=== PATIENT | female | born 1980 | race Caucasian/White ===

== ENCOUNTER 2021-02-04 11:12 | Day surgery (SDC) | payer OTHER ==
[~2021-02-04] VITALS: Ht 167.6 cm; Wt 121.3 kg
[~2021-02-04 11:12] MED LIST: DEXAMETHASONE SOD PHOS 4 MG/ML VIAL ONE; FERR325T14 PO; FERRIC SUBSULFATE 8 ML SOL.W.APPL TP ONE; HYDROmorphone 2 MG/ML VIAL IVP PRN; IV RINGERS,LACTATED 1000ML 1,000 ML IV SCH; LIDOCAINE 1%/EPI 1:100,000 20 ML VIAL. INJ ONE; LIDOCAINE 2% PF 5 ML VIAL. ONE; MIDAZOLAM HCL/PF 2 MG/2 ML VIAL. ONE; MULT-647 PO; ONDANSETRON PF 4 MG/2 ML VIAL. ONE; PROCHLORPERAZINE 10 MG/2 ML VIAL. IVP PRN; PROPOFOL 10 MG/ML (20ML) VIAL. IV ONE; ceFAZolin SODIUM 3 GM in IV DEXTROSE 5% 100ML 100 ML IV PRN; fentaNYL PF VIAL 100 MCG/2 ML VIAL IVP PRN; fentaNYL PF VIAL 100 MCG/2 ML VIAL ONE
[2021-02-04 11:32] VITALS: BP 123/75
[2021-02-04] MEDS ORDERED: [UNRECOGNIZED DRUG - CODE] PO (11:48)
[2021-02-04] MEDS ORDERED: HYDR100T24 PO (11:48)
[2021-02-04] MEDS ORDERED: DULO60CA6 PO (11:48)
[2021-02-04] MEDS ORDERED: KETOROLAC 30 MG/ML VIAL. ONE (12:31)
--- NOTE | 2021-02-04 12:46 | PDOC ---
BRIEF OPERATIVE NOTE Date: Feb 04, 2021 Pre-Op Diagnosis RENATO 1 Post-Op Diagnosis Same Procedure Performed Cervical Cone Biopsy Surgeon Dr. Mcnulty Anesthesia Type: General Blood Loss 5 ml Specimens Obtained cervical cone biopsy of anterior and posterior lip of cervix Findings cervical dysplasia Complications none Operative Note see dictation TAMMY MCNULTY Jr, MD Feb 04, 2021 12:46
--- NOTE | 2021-02-04 12:48 | DISCH ---
DISCHARGE INSTRUCTIONS Condition on Discharge Condition on Discharge: Stable Activity After Discharge Activity Instructions for Disc: Activity as tolerated Lifting Instructions after Dis: No heavy lifting Driving Instructions after Dis: Do not drive today Diet after Discharge Diet after Discharge: Regular Contacting the DRKimberly after DC Call your doctor for: Concerns you may have Follow-Up Follow up with: Dr. Mcnulty in 2 weeks. Rx Motrin 800 mg TID prn pain. TAMMY MCNULTY Jr, MD Feb 04, 2021 12:48
[2021-02-04] MEDS ORDERED: IBUP200T44 PO (13:05)
[2021-02-04] MEDS ORDERED: IBUPROFEN 400 MG TABLET. PO ONE (13:15)
[2021-02-04 13:25] VITALS: BP 145/80
--- NOTE | 2021-02-04 13:26 | OP ---
DATE OF SURGERY: 02/04/2021 PREOPERATIVE DIAGNOSIS: Cervical dysplasia. POSTOPERATIVE DIAGNOSIS: Cervical dysplasia. PROCEDURE: Cervical cone biopsy via Cold Knife Cone Biopsy SURGEON: Kahlil Mcnulty MD ANESTHESIA: GETA. ESTIMATED BLOOD LOSS: 5 mL. COMPLICATIONS: None. FINDINGS: Cervical dysplasia, RENATO 1. SUMMARY: A 41-year-old with RENATO 1 on colposcopic biopsy, requiring a cervical cone biopsy. She was counseled on the risks, benefits and expectations and voiced clear understanding to proceed. DESCRIPTION OF PROCEDURE: The patient was taken to the surgery suite and placed in the dorsal lithotomy position, was prepped with Betadine solution and draped in sterile fashion. After adequate anesthesia, weighted speculum and curved [place] placed vaginally. Anterior lip of the cervix grasped with a single tooth tenaculum. Cervix was injected with 1% lidocaine with epinephrine in a circumferential manner; 2-0 Vicryl suture was placed at 3 o'clock and 9 o'clock position to help stabilize the cervix. The cone biopsy was performed with the 45-degree angle scapula and removed from the anterior and posterior lip of the cervix. The remaining cervix was cauterized with Bovie cautery. Monsel solution was also applied for better hemostasis. Single tooth tenaculum, weighted speculum and curved Kitty were all removed. The patient tolerated the procedure well and was taken to recovery room in stable condition. Sponge and needle count correct x 3. HAWK/YENI DR: Leeroy TID: [id number] JOSHUA
--- NOTE | 2021-02-08 09:08 | PATHOLOGY ---
[facility] Accession Number: [id number] . 01 Material submitted: . cervix - CERVICAL CONE BIOPSY SUTURE AT 12:00 . 02 Diagnosis: Uterine cervix, cervical cone biopsy: - Mild dysplasia (RENATO-I), focal. - Endocervical, deep, and exocervical margins negative for RENATO-I. - Active chronic and chronic follicular cervicitis with focally atypical squamous metaplasia. - Nabothian cysts. - Endocervical gland tunnel clusters. (JPM:rasta; 02/05/2021) [facility] 02/08/2021 0814 Local . 02 Comment: There is no high-grade RENATO or evidence of malignancy. (JPM:rasta; 02/05/2021) . 02 Electronically signed: . Christian Carey MD, Pathologist NPI- [id number] . 01 Gross description: . The specimen is received in formalin, labeled "Cee Arredondo J and cervical cone biopsy suture at 12:00". It consists of a previously incised, oriented cervical cone measuring 3.0 x 2.0 x 1.5 cm. The specimen is oriented with a suture designating 12:00. A scant amount of ectocervical mucosa is identified which appears -white and focally hemorrhagic. The endocervical margin is inked blue and the remaining stroma is inked black. Sectioning reveals multiple smooth-walled, clear gelatinous fluid filled cysts. The specimen is entirely submitted as follows: A1: 12:00-3:00 A2-A3: 3:00-6:00 A4-A5: 6:00-9:00 A6-A7: 9:00-12:00 (MRF; 02/04/2021) MFE/MFE 02/04/2021 1910 Local . 02 Pathologist provided ICD-10: N87.0, N72, N88.8 . 02 CPT . 324311 Specimen Comment: A courtesy copy of this report has been sent to [phone] Specimen Comment: Report sent to Specimen Comment: A duplicate report has been generated due to demographic updates. Performed at: 01 [facility] [address], [place] [id number] MD Mauricio Rosario MD Phone: [phone] Performed at: 02 [facility] [address] [place], [place] [id number] MD Christian Carey MD Phone: [phone]
== END 2021-02-04 13:25 | disposition home or self-care (01) ==
LOC: SURG 11:12
PROVIDERS: ATTEND Obstetrics & Gynecology
DX: N87.9 Dysplasia of cervix uteri, unspecified (principal); N87.0 Mild cervical dysplasia; N72 Inflammatory disease of cervix uteri; Z98.51 Tubal ligation status; Z98.890 Other specified postprocedural states; Z79.899 Other long term (current) drug therapy; Z91.040 Latex allergy status; Z88.8 Allergy status to other drugs, medicaments and biological substances
CPT/HCPCS: 57520; 81025; 88307; A4344; A4930; J1100; J1885; J2405; J2704; J3010; J2250

== ENCOUNTER 2021-04-26 18:17 | Emergency (ER) | payer OTHER ==
[~2021-04-26] VITALS: Ht 167.6 cm; Wt 121.5 kg
[~2021-04-26 18:17] MED LIST changes: -DEXAMETHASONE SOD PHOS 4 MG/ML VIAL ONE; +DULO60CA7 PO; -FERRIC SUBSULFATE 8 ML SOL.W.APPL TP ONE; +HYDR100T24 PO; -HYDROmorphone 2 MG/ML VIAL IVP PRN; +IBUP200T44 PO; -IV RINGERS,LACTATED 1000ML 1,000 ML IV SCH; -LIDOCAINE 1%/EPI 1:100,000 20 ML VIAL. INJ ONE; -LIDOCAINE 2% PF 5 ML VIAL. ONE; -MIDAZOLAM HCL/PF 2 MG/2 ML VIAL. ONE; -ONDANSETRON PF 4 MG/2 ML VIAL. ONE; -PROCHLORPERAZINE 10 MG/2 ML VIAL. IVP PRN; -PROPOFOL 10 MG/ML (20ML) VIAL. IV ONE; +[UNRECOGNIZED DRUG - CODE] PO; -ceFAZolin SODIUM 3 GM in IV DEXTROSE 5% 100ML 100 ML IV PRN; -fentaNYL PF VIAL 100 MCG/2 ML VIAL IVP PRN; -fentaNYL PF VIAL 100 MCG/2 ML VIAL ONE
[2021-04-26] MEDS ORDERED: METOCLOPRAMIDE HCL 10 MG/2 ML VIAL. IVP ONE (19:00)
[2021-04-26] MEDS ORDERED: PHENAZOPYRIDINE 200 MG TABLET. PO ONE (19:00)
[2021-04-26] MEDS ORDERED: IV NORMAL SALINE 1000ML BAG 1,000 ML IV SCH (19:00)
--- NOTE | 2021-04-26 19:05 | PHYS DOC ---
Past Medical History Additional Past Medical Histor: Hep C, anemia, kidney stones, Uti. Past Surgical History: No Surgical History Smoking Status: Former Smoker Alcohol Use: None General Adult EDM: Chief Complaint: ABDOMINAL PAIN HPI: HPI: 41-year-old female past medical history significant for seizure disorder, right renal cyst, former IV drug use with cocaine, hepatitis C infection, iron deficiency anemia and anxiety, presents to the ED from [facility] (has been incarcerated for 2 years) with complaints of " really bad burning sensation under my skin," states she was diagnosed with nerve pain that goes from her right hip to her ribs and sometimes her buttock and right flank region. Patient states for the past week the symptoms have been worsening -more localized near her right flank with nausea and vomiting that started last night, "I haven''t been able to eat anything today." Patient states she was recently diagnosed with a urinary tract infection and just started Rocephin, Cipro and Bactrim today. Past surgical history of cholecystectomy, appendectomy, 3 C-sections and a cervical cone biopsy February 042020. Has received the moderna covid vaccine 08/2020. Review of Systems: Review of Systems: Constitutional: Denies fever or chills. [] Eyes: Denies change in visual acuity. [] HENT: Denies nasal congestion or sore throat. [] Respiratory: Denies cough or shortness of breath. [] Cardiovascular: Denies chest pain or edema. [] GI: Denies bloody stools or diarrhea. [] : Reports dysuria and hematuria, no vaginal bleeding or abnormal discharge Musculoskeletal: Denies midline back pain or joint pain. [] Integument: Denies rash or diaphoresis Neurologic: Denies headache, focal weakness or sensory changes. [] Endocrine: Denies polyuria or polydipsia. [] Lymphatic: Denies swollen glands. [] Psychiatric: Denies depression or anxiety. [] Heart Score: C/O Chest Pain: No Risk Factors: Risk Factors: DM, Current or recent (<one month) smoker, HTN, HLP, family history of CAD, obesity. Risk Scores: Score 0 - 3: 2.5% MACE over next 6 weeks - Discharge Home Score 4 - 6: 20.3% MACE over next 6 weeks - Admit for Clinical Observation Score 7 - 10: 72.7% MACE over next 6 weeks - Early Invasive Strategies Allergies: Allergies: Allergies Coded Allergies Type Severity Reaction Last Updated Verified latex Allergy Intermediate Unknown 04/26/21 Yes morphine Allergy Intermediate Unknown 04/26/21 Yes Physical Exam: PE: Constitutional: Well developed, well nourished, no acute distress, non-toxic appearance. HENT: Normocephalic, atraumatic, Eyes: EOMI, conjunctiva normal, no discharge. Neck: Normal range of motion, supple, Cardiovascular: S1/2 present, regular rhythm Lungs & Thorax: Speaking in full sentences, bilateral equal chest rise, no tachypnea or increased work of breathing Abdomen: soft, no tenderness, Skin: Warm, dry, no erythema, no rash. [] Back: No tenderness, right CVA tenderness. [] Extremities: No tenderness, no cyanosis, no lower extremity edema Neurologic: Alert and oriented X 3, normal motor function, normal sensory function, no focal deficits noted. [] Psychologic: Affect normal, judgement normal, mood normal. [] Current Patient Data: Vital Signs: Vital Signs Date Time Temp Pulse Resp B/P (MAP) Pulse Ox O2 Delivery O2 Flow Rate FiO2 04/26/21 18:25 97.8 69 20 115/76 (89) 97 Room Air 97.8 EKG: EKG: Sinus rhythm at 60 bpm, no axis deviation, normal intervals, T wave inversion V3, no ST ovation ST depression, no active chest pain or pressure Radiology/Procedures: Radiology/Procedures: []IMAGING REPORT Signed PATIENT: PADILLA LANGLEY ACCOUNT: [id number] : 1980 LOCATION: ER AGE: 41 SEX: F EXAM STATUS: REG ER ORD. PHYSICIAN: DAVID GARCIAS DO REASON: right rib and flank pain PROCEDURE: PORTABLE CHEST 1V XR CHEST 1V INDICATION: right rib and flank pain : . COMPARISON STUDY: 04/09/2009. FINDINGS: Lungs: Normal lung volume. No pulmonary mass or consolidation. Stable left mid lung nodule. The tracheobronchial tree and hilar structures are normal. Pleura: No pleural effusion or pneumothorax. Heart and Mediastinum: The cardiomediastinal silhouette is normal. The great vessels of the thorax are normal. Bones and Soft Tissues: The bones and soft tissues are within normal limits. IMPRESSION: No acute cardiopulmonary process. Electronically signed by: Gaby Ramos MD (04/26/2021 9:59 PM) [facility] DICTATED and SIGNED BY: GABY RAMOS MD DATE: 04/26/21 [id number] IMAGING REPORT Signed PATIENT: PADILLA LANGLEY ACCOUNT: [id number] : 1980 LOCATION: ER AGE: 41 SEX: F EXAM STATUS: REG ER ORD. PHYSICIAN: DAVID GARCIAS DO REASON: RUQ PAIN, NAUSEA/ right flank/rib pain PROCEDURE: CT ABD PELV W/ IV CONTRST ONLY Exam: CT abdomen/pelvis with intravenous contrast Indication: Right upper quadrant pain, nausea. Right flank pain. Comparison: None Technique: Helical CT imaging performed of the abdomen and pelvis after the intravenous administration of 75 mL Omnipaque 300 contrast. Sagittal and coronal reformats were obtained. One or more of the following individualized dose reduction techniques were utilized for this examination: 1. Automated exposure control 2. Adjustment of the mA and/or kV according to patient size 3. Use of iterative reconstruction technique. Findings: Lower chest: Lung bases are clear. Heart is normal in size. Liver: No focal liver lesions. Gallbladder/Biliary Tree: Gallbladder surgically absent. Bile ducts are normal. Pancreas: Normal. Spleen: Normal. Adrenal Glands: Normal. Kidneys/Ureters/Bladder: There is a large staghorn calculus in the right kidney measuring about 4 x 4 centimeters in greatest diameters. There is moderate dilation of the right renal calyces with areas of cortical thinning. The renal pelvis and proximal ureter demonstrate moderate wall thickening and surrounding fat stranding. The rest of the right ureter is normal in appearance. Left kidney and left ureter are normal. No ureteral calculi. Bladder is normal. Reproductive Organs: Uterus is anteverted. Small amount of fluid in the endometrial canal. There is a dilated left dilated tubular structure in the left adnexa likely a hydrosalpinx. Stomach, small bowel, and colon: Surgical changes of appendectomy. Stomach, small bowel, and colon are normal. Vasculature: Aorta is normal in caliber. Lymph Nodes: There are multiple small periaortic and ye hepatis lymph nodes, likely reactive. Peritoneum and retroperitoneum: No free fluid or free air. Bones: No acute osseous abnormality. Impression: 1. 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 2. Left hydrosalpinx. Electronically signed by: Chio Moss MD (04/26/2021 10:32 PM) [facility] DICTATED and SIGNED BY: CHIO MOSS MD DATE: 04/26/21 [id number] 0 Course & Med Decision Making: Course & Med Decision Making Pertinent Labs and Imaging studies reviewed. (See chart for details) Concern for right-sided xanthogranulomatous pyelonephritis, has received less than 24 hours of antibiotics at correctional facility. Pts' main concern is nausea and vomiting. States significant improvement with IV Reglan. Will discharged with ODT Zofran (provided a dose prior to ed dc due time of day/pharmacies likely closed). Patient with no tachycardia, afebrile, well- appearing, does not meet sepsis criteria. Will discharge home with strict ED return precautions were given for confusion, fever, worsening nausea and vomiting, dehydration or pain. Encouraged urgent outpatient follow-up with PMD in 24 to 48 hours for reevaluation. Life-threatening processes were considered but are low suspicion at this time, given history, physical exam and ED workup. Pt was educated on all prescription medications and adverse effects. All patient's questions were answered and pt was stable at time of discharge. Life/limb-threatening differential includes but is not limited to, acute coronary syndrome/myocardial infarction, Boerhaave's, DKA, gastrointestinal bleeding, intracranial hemorrhage, ischemic bowel, meningitis, sepsis, surgical abdomen (AAA), toxidrome (drug over/overdose/carbon monoxide, etc), ovarian/testicular torsion, trauma, or infection/sepsis. I have spoken with the patient and/or caregivers. I explained the patient's condition, diagnoses and treatment plan based on the information available to me at this time. I have answered the patient and/or caregiver's questions and addressed any concerns. The patient and/or caregivers have a good understanding of patient's diagnosis, condition and treatment plan as can be expected at this point. Vital signs have been stable. Patient's condition is stable and appropriate for discharge from the emergency department. Patient will pursue further outpatient evaluation with primary care physician or other designated or consulting physician as outlined in the discharge instructions. The patient and/or caregivers are agreeable to this plan of care and follow-up instructions have been explained in detail. The patient and/or caregivers have received these instructions in written form and have expressed an understanding of the discharge instructions. The patient and/or caregivers are aware that any significant change of condition or worsening of symptoms should prompt immediate return to this or the closest emergency department or call to 911. Steve Disclaimer: Steve Disclaimer: This electronic medical record was generated, in whole or in part, using a voice recognition dictation system. Departure Departure Impression: Primary Impression: Pyelonephritis Additional Impression: Nausea & vomiting Disposition: HOME / SELF CARE / HOMELESS Condition: STABLE Referrals: JADEN DONAHUE DO (PCP) Follow-up with your primary care physician in 24 to 48 hours OR FOLLOW UP WITH FAMILY MEDICINE: [address], [address] [place] [address] Patient Instructions: Nausea and Vomiting, Pyelonephritis, Adult Additional Instructions: EMERGENCY DEPARTMENT GENERAL DISCHARGE INSTRUCTIONS Thank you for coming to [facility] Emergency Department (ED) today and trusting us with you care. We trust that you had a positive experience in our Emergency Department. If you wish to speak to the department management, you may call the Director at [phone]. YOUR FOLLOW UP INSTRUCTIONS ARE FOLLOWS: 1. Do you have a private Doctor? If you do not have a private doctor, please ask for a resource list of physicians or clinics that may be able to assist you with follow up care. 2. The Emergency Physicain has interpreted your x-rays. The X-Ray specialist will also review them. If there is a change in the findings, you will be notified in 48 hours when at all possible. 3. A lab test or culture has been done, your results will be reviewed and you will be notified if you need a change in treatment. ADDITIONAL INSTRUCTIONS AND INFORMATION: 1. Your care today has been supervised by a physician who is specially trained in emergency care. Many problems require more than one evaluation for a complete diagnosis and treatment. We recommend that you schedule your follow up appointment as recommended to ensure complete treatment of you illness or injury. If you are unable to obtain follow up care and continue to have a problem, or if your condition worsens, we recommend that you return to the ED. 2. We are not able to safely determine your condition over the phone nor are we able to give sound medical advice over the phone. For these safety reasons, if you call for medical advice we will ask you to come to the ED for further evaluation. 3. If you have any questions regarding these discharge instructions please call the ED at [phone]. SAFETY INFORMATION: In the interest of safety, wellness, and injury prevention; we encourage you to wear your sealbelt, if you smoke; quite smoking, and we encourage family to use a protective helmet for bicycling and other sporting events that present an increased risk for head injury. IF YOUR SYMPTOMS WORSEN OR NEW SYMPTOMS DEVELOP, OR YOU HAVE CONCERNS ABOUT YOUR CONDITION; OR IF YOUR CONDITION WORSENS WHILE YOU ARE WAITING FOR YOUR FOLLOW UP APPOINTMENT; EITHER CONTACT YOUR PRIMARY CARE DOCTOR, THE PHYSICIAN WHOSE NAME AND NUMBER YOU WERE GIVEN, OR RETURN TO THE ED IMMEDIATELY. Scripts Ondansetron (ONDANSETRON ODT) 4 Mg Tab.rapdis 1 TAB PO PRN Q6-8HRS, #20 TAB Prov: DAVID GARCIAS DO 04/26/21 DAVID GARCIAS DO Apr 26, 2021 19:05
[2021-04-26] MEDS ORDERED: CONTRAST GIVEN. MC PRN (19:45)
[2021-04-26] MEDS ORDERED: IOHEXOL 300 MG/ML 100ML VIAL. IV ONE (19:45)
[2021-04-26 21:47] LABS: CALCIUM 8.6 mg/dL (8.5-10.1); CREATININE 0.8 mg/dL (0.6-1.0); GFR 79.4; POTASSIUM 3.7 mmol/L (3.5-5.1)
[2021-04-26 21:53] LABS: ALBUMIN 3.4 g/dL (3.4-5.0); DIRECT BILIRUBIN 0.1 mg/dL (0.0-0.2); TOTAL BILIRUBIN 0.3 mg/dL (0.2-1.0); TOTAL PROTEIN 7.7 g/dL (6.4-8.2)
[2021-04-26 21:57] LABS: PREG TEST PT QUAL NEGATIVE (NEG)
--- NOTE | 2021-04-26 22:01 | RAD ---
XR CHEST 1V INDICATION: right rib and flank pain : . COMPARISON STUDY: 04/09/2009. FINDINGS: Lungs: Normal lung volume. No pulmonary mass or consolidation. Stable left mid lung nodule. The trach eobronchial tree and hilar structures are normal. Pleura: No pleural effusion or pneumothorax. Heart and Mediastinum: The cardiomediastinal silhouette is normal. The great vessels of the thorax ar e normal. Bones and Soft Tissues: The bones and soft tissues are within normal limits. IMPRESSION: No acute cardiopulmonary process. Electronically signed by: Facundo Ramos MD (04/26/2021 9:59 PM) [facility]
--- NOTE | 2021-04-26 22:35 | RAD ---
Exam: CT abdomen/pelvis with intravenous contrast Indication: Right upper quadrant pain, nausea. Right flank pain. Comparison: None Technique: Helical CT imaging performed of the abdomen and pelvis after the intravenous administratio n of 75 mL Omnipaque 300 contrast. Sagittal and coronal reformats were obtained. One or more of the following individualized dose reduction techniques were utilized for this examinat ion: 1. Automated exposure control 2. Adjustment of the mA and/or kV according to patient size 3. Use of iterative reconstruction technique. Findings: Lower chest: Lung bases are clear. Heart is normal in size. Liver: No focal liver lesions. Gallbladder/Biliary Tree: Gallbladder surgically absent. Bile ducts are normal. Pancreas: Normal. Spleen: Normal. Adrenal Glands: Normal. Kidneys/Ureters/Bladder: There is a large staghorn calculus in the right kidney measuring about 4 x 4 centimeters in greatest diameters. There is moderate dilation of the right renal calyces with areas of cortical thinning. The renal pelvis and proximal ureter demonstrate moderate wall thickening and s urrounding fat stranding. The rest of the right ureter is normal in appearance. Left kidney and left ureter are normal. No ureteral calculi. Bladder is normal. Reproductive Organs: Uterus is anteverted. Small amount of fluid in the endometrial canal. There is a dilated left dilated tubular structure in the left adnexa likely a hydrosalpinx. Stomach, small bowel, and colon: Surgical changes of appendectomy. Stomach, small bowel, and colon ar e normal. Vasculature: Aorta is normal in caliber. Lymph Nodes: There are multiple small periaortic and ye hepatis lymph nodes, likely reactive. Peritoneum and retroperitoneum: No free fluid or free air. Bones: No acute osseous abnormality. Impression: 1. 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 2. Left hydrosalpinx. Electronically signed by: Chio Moss MD (04/26/2021 10:32 PM) [facility]
[2021-04-26 22:54] LABS: CLARITY,URINE CLOUDY; COLOR,URINE ORANGE
[2021-04-26 23:01] LABS: AMPHETAMINE/METHAMPHETAMINE NEG (NEG); BARBITURATES NEG (NEG); BENZODIAZEPINES NEG (NEG); CANNABINOIDS NEG (NEG); COCAINE NEG (NEG); METHADONE NEG (NEG); OPIATES NEG (NEG); PHENCYCLIDINE NEG (NEG)
[2021-04-26 23:08] LABS: AMORPHOUS SEDIMENT,UR PRESENT /HPF; BACTERIA,URINE MODERATE /HPF (0-FEW); WBC,URINE TNTC /HPF (0-4)
[2021-04-26 23:19] LABS: BASO # 0.1 x10^3/uL (0.0-0.2); BASO % 1 % (0-3); EOS # 0.3 x10^3/uL (0.0-0.7); EOS % 3 % (0-3); HEMATOCRIT 40.3 % (36.0-47.0); HEMOGLOBIN 13.2 g/dL (12.0-15.5); LYMPH # 2.4 x10^3/uL (1.0-4.8); LYMPH % 25 % (24-48); MEAN CORPUSCULAR HEMOGLOBIN 29 pg (25-35); MEAN CORPUSCULAR HGB CONC 33 g/dL (31-37); MEAN CORPUSCULAR VOLUME 88 fL (79-100); MONO # 0.7 x10^3/uL (0.0-1.1); MONO % 8 % (0-9); NEUT # 6.1 x10^3/uL (1.8-7.7); NEUT % 63 % (31-73); PLATELET COUNT 315 x10^3/uL (140-400); RED BLOOD COUNT 4.58 x10^6/uL (3.50-5.40); RED CELL DISTRIBUTION WIDTH 14.4 % (11.5-14.5); WHITE BLOOD COUNT 9.6 x10^3/uL (4.0-11.0)
[2021-04-26] MEDS ORDERED: cefTRIAXone IV Push 1 GM VIAL. IVP ONE (23:30)
[2021-04-26] MEDS ORDERED: ONDA4TAB12 PO (23:52)
[2021-04-27] VITALS: BP 154/90
[2021-04-27] MEDS ORDERED: ONDANSETRON ODT 4 MG TAB.RAPDIS. PO ONE (00:15)
--- NOTE | 2021-04-27 04:31 | EKG ---
[facility] [address] [place] [address] Test Date: 2021-04-26 Test Time: 19:18:14 Pat Name: PADILLA LANGLEY Department: Room: Gender: F Digital Sales Director: : 1980 Requested By: DAVID GARCIAS Order Number: [id number] Reading MD: Johnnie Burns Measurements Intervals Monette Rate: 60 P: MS: QRS: 18 QRSD: 84 T: 39 QT: 438 QTc: 438 Interpretive Statements SINUS RHYTHM Electronically Signed On 04-28-2021 16:04:14 CDT by Johnnie Burns
== END 2021-04-27 00:31 | disposition home or self-care (01) ==
LOC: EEVIPCON 18:17 → ER 18:17
DX: N12 Tubulo-interstitial nephritis, not specified as acute or chronic (principal); R11.2 Nausea with vomiting, unspecified; Z87.891 Personal history of nicotine dependence; Z88.5 Allergy status to narcotic agent; Z91.040 Latex allergy status
CPT/HCPCS: 36415; 71045; 74177; 80048; 80076; 80307; 81001; 82550; 83690; 84484; 84703; 85025; 87086; 93005; 96361; 96374; 99285; J0696; J2765; J7030; Q9967